=== PATIENT | male | born 1990 | race Caucasian/White ===

== ENCOUNTER 2017-03-28 12:06 | Inpatient (IN) | payer OTHER ==
[2017-03-28 12:25] VITALS: BMI 23.6
--- NOTE | 2017-03-28 13:44 | HP ---
COWS - Scale Resting Pulse: 0= [place] 80 or Below Sweatin=Flushed/Facial Moisture Restless Observation: 1= Difficult to Sit Still Pupil Size: 1= Pupils >than Normal Bone or Joint Aches: 2= Severe Diffuse Aches Runny Nose/ Eye Tearin= Runny Nose/Eyes GI Upset > 30mins: 2= Nausea/Diarrhea Tremor Observation: 2= Slight Tremor Visible Yawning Observation: 1= 1-2x During Session Anxiety or Irritability: 2=Irritable/Anxious Goose Flesh Skin: 3=Piloerection COWS Score: 18 CIWA Score - CIWA Score Nausea/Vomitin-No Nausea/No Vomiting Muscle Tremors: 3 Anxiety: 3 Agitation: 2 Paroxysmal Sweats: 3 Orientation: 0-Oriented Tacttile Disturbances: 0-None Auditory Disturbances: 0-None Visual Disturbances: 0-None Headache: 4-Moderately Severe CIWA-Ar Total Score: 15 Admission ROS BHS - HPI Chief Complaint: "I want to get clean and I don't want to go through withdrawal phases again." Pt. is here to detox from Opioids (Percocet, Oxycontin) and Xanax. Allergies/Adverse Reactions: Allergies Allergy/AdvReac Type Severity Reaction Status Date / Time No Known Allergies Allergy Verified 03/28/17 12:44 History of Present Illness: Pt. is a 26 YO male here to detox from Opioids (Percocet, Oxycontin) and Xanax. Pt. has had [address] previous Det[address] admission [address] [facility] in 07/2016. Exam Limitations: No Limitations - Ebola screening Have you traveled outside of the country in the last 21 days: No Have you had contact with anyone from an Ebola affected area: No Have you been sick,other than usual withdrawal symptoms: No Do you have a fever: No - Review of Systems Constitutional: Chills, Diaphoresis, Fever, Malaise, Night Sweats, Changes in sleep EENT: reports: Tearing, Nose Congestion, Sinus Pressure Respiratory: reports: No Symptoms reported Cardiac: reports: No Symptoms Reported GI: reports: Diarrhea, Nausea, Indigestion, Abdominal cramping : reports: No Symptoms Reported Musculoskeletal: reports: Back Pain, Muscle Pain Integumentary: reports: No Symptoms Reported Neuro: reports: Headache, Seizure (Drug-Related (X1, 01/2017). Pt. was evaluated in ER.), Tremors Endocrine: reports: No Symptoms Reported Hematology: reports: No Symptoms Reported Psychiatric: reports: Judgement Intact, Mood/Affect Appropiate, Orientated x3, Anxious Other Systems: Reviewed and Negative Patient History - Patient Medical History Hx Anemia: No Hx Asthma: No Hx Chronic Obstructive Pulmonary Disease (COPD): No Hx Cancer: No Hx Cardiac Disorders: No Hx Congestive Heart Failure: No Hx Hypertension: No Hx Hypercholesterolemia: No Hx Pacemaker: No HX Cerebrovascular Accident: No Hx Seizures: Yes (01/2017 drug related (only 1 time).) Hx Dementia: No Hx Diabetes: No Hx Gastrointestinal Disorders: No Hx Liver Disease: No Hx Genitourinary Disorders: No Hx Sexually Transmitted Disorders: No Hx Renal Disease (ESRD): No Hx Thyroid Disease: No Hx Human Immunodeficiency Virus (HIV): No (Last Tested: 2014.) Hx Hepatitis C: No (NEGATIVE HISTORY.) Hx Depression: No Hx Suicide Attempt: No (PATIENT DENIES CURRENT SI / HI.) Hx Bipolar Disorder: No Hx Schizophrenia: No - Patient Surgical History Past Surgical History: No Hx Neurologic Surgery: No Hx Cataract Extraction: No Hx Cardiac Surgery: No Hx Lung Surgery: No Hx Breast Surgery: No Hx Breast Biopsy: No Hx Abdominal Surgery: No Hx Appendectomy: No Hx Cholecystectomy: No Hx Genitourinary Surgery: No Hx Section: No Hx Orthopedic Surgery: No Anesthesia Reaction: No - PPD History Previous Implant?: Yes Documented Results: Negative w/proof Implanted On Prior [facility] Admission?: Yes Date: 07/08/16 PPD to be Administered?: No - Reproductive History Patient is a Female of Child Bearing Age (11 -55 yrs old): No (PATIENT IS MALE.) - Smoking Cessation Smoking history: Current every day smoker Have you smoked in the past 12 months: Yes Aproximately how many cigarettes per day: 12 Cigars Per Day: 0 Hx Chewing Tobacco Use: No Initiated information on smoking cessation: Yes 'Breaking Loose' booklet given: 03/28/17 (GIVEN ON UNIT.) - Substance & Tx. History Hx Alcohol Use: No Hx Substance Use: Yes Substance Use Type: Cocaine, Opiates, Tranquilizers Hx Substance Use Treatment: Yes (1 Previous detox admission at [facility].) - Substances Abused Oxycontin Route: Oral Frequency: Daily Amount used: 8 pills Age of first use: 22 Date of Last Use: 03/27/17 Cocaine Route: Inhalation Frequency: 1-3 times last 30 days Amount used: 2 gms Age of first use: 21 Alprazolam (Xanax) Route: Oral Frequency: Daily Amount used: 1 bar Age of first use: 25 Date of Last Use: 03/26/17 percocet Route: Oral Frequency: Daily Amount used: 80mg Age of first use: 22 Date of Last Use: 03/27/17 Family Disease History - Family Disease History Family Disease History: Diabetes: Grandparent Admission Physical Exam [facility] - Vital Signs Vital Signs: Vital Signs - 24 hr 03/28/17 12:23 Temperature 97.9 F Pulse Rate 80 Respiratory 16 Rate Blood Pressure 123/68 - Physical General Appearance: Yes: No Apparent Distress, Nourished, Appropriately Dressed , Tremorous, Anxious HEENTM: Yes: Hearing grossly Normal, Normocephalic, Normal Voice, KRISTY, Pharynx Normal Respiratory: Yes: Chest Non-Tender, Lungs Clear, No Respiratory Distress Neck: Yes: No masses,lesions,Nodules, Supple, Trachea in good position Breast: Yes: Breast Exam Deferred Cardiology: Yes: Regular Rhythm, Regular Rate, S1, S2 Abdominal: Yes: Normal Bowel Sounds, Non Tender, Flat, Soft Genitourinary: Yes: Within Normal Limits Back: Yes: Decreased Range of Motion Musculoskeletal: Yes: Gait Steady, Back pain Extremities: Yes: Normal Range of Motion, Non-Tender, Tremors Neurological: Yes: Fully Oriented, Alert, Normal Mood/Affect, Normal Response Integumentary: Yes: Normal Color, Dry, Warm Lymphatic: Yes: Within Normal Limits - Diagnostic (1) Nicotine dependence Current Visit: Yes Status: Chronic Qualifiers: Nicotine product type: cigarettes Substance use status: uncomplicated Qualified Code(s): F17.210 - Nicotine dependence, cigarettes, uncomplicated (2) Opioid dependence with withdrawal Current Visit: Yes Status: Acute (3) Cocaine dependence, uncomplicated Current Visit: Yes Status: Acute (4) Sedative, hypnotic or anxiolytic dependence with withdrawal, uncomplicated Current Visit: Yes Status: Acute (5) History of seizure Current Visit: Yes Status: Chronic Comment: X 1 (01/2017), Related Substance-Withdrawal. Cleared for Admission S - Detox or Rehab [facility] Level of Care: Medically Managed Detox Regimen/Protocol: Methadone/Valium BHS Breath Alcohol Content Breath Alcohol Content: 0 Urine Drug Screen - Results Drug Screen Negative: No Urine Drug Screen Results: DALE-Cocaine, BZO-Benzodiazepines, TCA-Tricyclic Antidepress, OXY-Oxycodone
[2017-03-28] MEDS ORDERED: MAG HYDROX/AL HYDROX/SIMETH 30 ML UNIT-DOSE CUP PO PRN (14:06)
[2017-03-28] MEDS ORDERED: MAGNESIUM CITRATE 300 ML BOTTLE PO PRN (14:06)
[2017-03-28] MEDS ORDERED: guaiFENesin/D-METHORPHAN HB 10 ML UNIT-DOSE CUPS PO PRN (14:06)
[2017-03-28] MEDS ORDERED: diazePAM 5 MG TABLET PO ONE (14:06)
[2017-03-28] MEDS ORDERED: ACETAMINOPHEN 325 MG TABLET (FP) PO PRN (14:06)
[2017-03-28] MEDS ORDERED: LOPERAMIDE HCL 2 MG CAPSULE PO PRN (14:06)
[2017-03-28] MEDS ORDERED: METHADONE HCL 10 MG TABLET (FOR DETOX USE ONLY) PO ONE ×2 (14:06→23:00)
[2017-03-28] MEDS ORDERED: P-EPHED 60MG/TRIPROLIDI 2.5MG TABLET PO PRN (14:06)
[2017-03-28] MEDS ORDERED: MAGNESIUM HYDROX 2400MG/30ML ORAL SUSPENSION 30 ML CUP PO PRN (14:06)
[2017-03-28] MEDS ORDERED: NICOTINE POLACRILEX 2 MG GUM BUC PRN (14:06)
[2017-03-28] MEDS ORDERED: MENTHOL/PHENOL 1 EACH UD MM PRN (14:06)
[2017-03-28] MEDS: diazePAM 5 MG TABLET PO SCH ×2 (15:02→22:18)
[2017-03-28] MEDS: NICOTINE 21 MG/24 HOURS TOPICAL PATCH TD SCH (15:02)
[2017-03-28 18:19] LABS: URINE APPEARANCE CLEAR; URINE BILIRUBIN NEGATIVE (NEGATIVE); URINE BLOOD NEGATIVE (NEGATIVE); URINE COLOR STRAW; URINE GLUCOSE (UA) NEGATIVE (NEGATIVE); URINE KETONE NEGATIVE (NEGATIVE); URINE LEUK ESTERASE NEGATIVE (NEGATIVE); URINE NITRITE NEGATIVE (NEGATIVE); URINE PROTEIN NEGATIVE (NEGATIVE); URINE UROBILINOGEN NEGATIVE E.U./dl (0.2-1.0)
[2017-03-28] MEDS: diazePAM 5 MG TABLET PO PRN (18:54)
[2017-03-28] MEDS: THIAMINE HCL 100 MG TABLET (FP) PO SCH (22:18)
[2017-03-28] MEDS: diphenhydrAMINE HCL 50 MG CAPSULE PO PRN (22:18)
[2017-03-29] MEDS: diazePAM 5 MG TABLET PO PRN ×3 (01:55→17:02)
[2017-03-29] MEDS: diazePAM 5 MG TABLET PO SCH ×3 (05:57→22:17)
[2017-03-29] MEDS ORDERED: METHADONE HCL 10 MG TABLET (FOR DETOX USE ONLY) PO SCH (10:00)
[2017-03-29] MEDS: PRENATAL VITAMINS W/ FOLIC ACID TABLET (FP) PO SCH (10:33)
[2017-03-29] MEDS: NICOTINE 21 MG/24 HOURS TOPICAL PATCH TD SCH (10:34)
--- NOTE | 2017-03-29 11:05 | EKG ---
Test Reason : Blood Pressure : / mmHG Vent. Rate : 078 BPM Atrial Rate : 078 BPM P-R Int : 152 ms QRS Dur : 082 ms QT Int : 364 ms P-R-T Axes : 064 -23 041 degrees QTc Int : 414 ms NORMAL SINUS RHYTHM NORMAL ECG NO PREVIOUS ECGS AVAILABLE Confirmed by GUEVARA ARAUJO MD ([id number]) on 03/29/2017 11:05:23 AM Referred By: Confirmed By:GUEVARA ARAUJO MD
[2017-03-29] MEDS ORDERED: LIDOCAINE 5% TOPICAL PATCH TP ONE (11:34)
[2017-03-29] MEDS: CYCLOBENZAPRINE HCL 10 MG TABLET (FP) PO PRN ×2 (12:41→22:17)
[2017-03-29 14:17] LABS: MCH 27.7 pg (25.7-33.7); MCHC 32.5 g/dl (32.0-35.9); MEAN CELL VOLUME 85.3 fl (80-96); MEAN PLT VOLUME 10.2 fl (7.5-11.1); PLATELET COUNT 190 K/MM3 (134-434); RDW 12.8 % (11.9-15.9); WHITE BLOOD COUNT 7.4 K/mm3 (4.0-10.0)
[2017-03-29 14:26] LABS: ALK PHOS 81 U/L (45-117); ANION GAP 10 (8-16); BILIRUBIN,TOTAL 0.5 mg/dL (0.2-1.0); CALCIUM 9.4 mg/dL (8.5-10.1); CO2 27 mmol/L (21-32); COCKROFT - GAULT 92.7; CREATININE 1.1 mg/dL (0.7-1.3); GLUCOSE,RANDOM 91 mg/dL (74-106); SGOT/AST 17 U/L (15-37); SGPT/ALT 25 U/L (12-78)
--- NOTE | 2017-03-29 15:07 | PN ---
[facility] CIWA - CIWA Score Nausea/Vomitin-No Nausea/No Vomiting Muscle Tremors: 2 Anxiety: 4-Mod. Anxious/Guarded Agitation: 3 Paroxysmal Sweats: 4-Forehead w/Sweat Beads Orientation: 0-Oriented Tacttile Disturbances: 3-Moderate Itch/Numb/Burn Auditory Disturbances: 0-None Visual Disturbances: 2-Mild Sensitivity Headache: 0-None Present CIWA-Ar Total Score: 18 BHS COWS - Scale Resting Pulse: 0= [place] 80 or Below Sweatin=Flushed/Facial Moisture Restless Observation: 1= Difficult to Sit Still Pupil Size: 0= Normal to Room Light Bone or Joint Aches: 2= Severe Diffuse Aches Runny Nose/ Eye Tearin= Runny Nose/Eyes GI Upset > 30mins: 1= Stomach Cramp Tremor Observation of Outstretched Hands: 2= Slight Tremor Visible Yawning Observation: 1= 1-2x During Session Anxiety or Irritability: 2=Irritable/Anxious Goose Flesh Skin: 3=Piloerection COWS Score: 16 S Progress Note (SOAP) Subjective: Interrupted Sleep, Lower Back Ache, Sweating. Objective: PT. A & O X 3, OBSERVED AMBULATING ON UNIT. 03/29/17 15:05 Vital Signs Temperature 97.5 F L 03/29/17 10:10 Pulse Rate 74 03/29/17 10:10 Respiratory Rate 18 03/29/17 10:10 Blood Pressure 129/77 03/29/17 10:10 O2 Sat by Pulse Oximetry (%) Laboratory Tests 03/28/17 03/29/17 03/29/17 18:01 07:12 07:12 WBC 7.4 RBC 4.55 Hgb 12.6 D Hct 38.8 MCV 85.3 MCHC 32.5 RDW 12.8 Plt Count 190 MPV 10.2 Sodium 138 Potassium 4.3 Chloride 101 Carbon Dioxide 27 Anion Gap 10 BUN 22 H Creatinine 1.1 D Creat Clearance w eGFR > 60 Random Glucose 91 Calcium 9.4 Total Bilirubin 0.5 D AST 17 D ALT 25 Alkaline Phosphatase 81 Total Protein 7.0 Albumin 4.0 Urine Color Straw Urine Appearance Clear Urine pH 7.0 D Ur Specific [place] 1.020 Urine Protein Negative Urine Glucose (UA) Negative Urine Ketones Negative Urine Blood Negative Urine Nitrite Negative Urine Bilirubin Negative Urine Urobilinogen Negative Ur Leukocyte Esterase Negative RPR Titer 03/29/17 07:12 WBC RBC Hgb Hct MCV MCHC RDW Plt Count MPV Sodium Potassium Chloride Carbon Dioxide Anion Gap BUN Creatinine Creat Clearance w eGFR Random Glucose Calcium Total Bilirubin AST ALT Alkaline Phosphatase Total Protein Albumin Urine Color Urine Appearance Urine pH Ur Specific [place] Urine Protein Urine Glucose (UA) Urine Ketones Urine Blood Urine Nitrite Urine Bilirubin Urine Urobilinogen Ur Leukocyte Esterase RPR Titer Nonreactive LABS NOTED. 03/29/17 15:08 Assessment: 03/29/17 15:06 WITHDRAWAL SYMPTOMS. Plan: CONTINUE DETOX. PRN FLEXERIL FOR BODY ACHES / MUSCLE SPASMS. INCREASE PO FLUID INTAKE.
[2017-03-29] MEDS ORDERED: LIDOCAINE PATCH REMOVAL MC SCH (22:00)
[2017-03-29] MEDS: THIAMINE HCL 100 MG TABLET (FP) PO SCH (22:17)
[2017-03-29] MEDS: diphenhydrAMINE HCL 50 MG CAPSULE PO PRN (22:18)
[2017-03-30] MEDS: diazePAM 5 MG TABLET PO PRN ×4 (01:10→19:40)
[2017-03-30] MEDS: CYCLOBENZAPRINE HCL 10 MG TABLET (FP) PO PRN ×3 (05:47→22:33)
[2017-03-30] MEDS: METHADONE HCL 5 MG TABLET (FOR DETOX USE ONLY) PO SCH (10:19)
[2017-03-30] MEDS: NICOTINE 21 MG/24 HOURS TOPICAL PATCH TD SCH (10:19)
[2017-03-30] MEDS: diazePAM 5 MG TABLET PO SCH ×2 (10:19→22:32)
[2017-03-30] MEDS: PRENATAL VITAMINS W/ FOLIC ACID TABLET (FP) PO SCH (10:20)
[2017-03-30] MEDS: hydrOXYzine PAMOATE 50 MG CAPSULE (FP) PO PRN (10:20)
--- NOTE | 2017-03-30 11:16 | PN ---
S CIWA - CIWA Score Nausea/Vomitin Muscle Tremors: 2 Anxiety: 3 Agitation: 2 Paroxysmal Sweats: 3 Orientation: 0-Oriented Tacttile Disturbances: 2-Mild Itch/Numbness/Burn Auditory Disturbances: 0-None Visual Disturbances: 0-None Headache: 0-None Present CIWA-Ar Total Score: 14 S COWS - Scale Resting Pulse: 1= [place] 81-100 Sweatin=Flushed/Facial Moisture Restless Observation: 1= Difficult to Sit Still Pupil Size: 1= Pupils >than Normal Bone or Joint Aches: 2= Severe Diffuse Aches Runny Nose/ Eye Tearin= Nasal Congestion GI Upset > 30mins: 1= Stomach Cramp Tremor Observation of Outstretched Hands: 1= Tremor [place], Not Seen Yawning Observation: 0= None Anxiety or Irritability: 2=Irritable/Anxious Goose Flesh Skin: 0=Smooth Skin COWS Score: 12 BHS Progress Note (SOAP) Subjective: INTERRUPTED SLEEP, SWEATS, CHILLS, ACHES/PAINS , CONSTIPATION Objective: 03/30/17 11:13 Vital Signs Temperature 96.4 F L 03/30/17 09:38 Pulse Rate 79 03/30/17 09:38 Respiratory Rate 16 03/30/17 09:38 Blood Pressure 125/75 03/30/17 09:38 O2 Sat by Pulse Oximetry (%) Laboratory Tests 03/28/17 03/29/17 03/29/17 18:01 07:12 07:12 WBC 7.4 RBC 4.55 Hgb 12.6 D Hct 38.8 MCV 85.3 MCHC 32.5 RDW 12.8 Plt Count 190 MPV 10.2 Sodium 138 Potassium 4.3 Chloride 101 Carbon Dioxide 27 Anion Gap 10 BUN 22 H Creatinine 1.1 D Creat Clearance w eGFR > 60 Random Glucose 91 Calcium 9.4 Total Bilirubin 0.5 D AST 17 D ALT 25 Alkaline Phosphatase 81 Total Protein 7.0 Albumin 4.0 Urine Color Straw Urine Appearance Clear Urine pH 7.0 D Ur Specific [place] 1.020 Urine Protein Negative Urine Glucose (UA) Negative Urine Ketones Negative Urine Blood Negative Urine Nitrite Negative Urine Bilirubin Negative Urine Urobilinogen Negative Ur Leukocyte Esterase Negative RPR Titer 03/29/17 07:12 WBC RBC Hgb Hct MCV MCHC RDW Plt Count MPV Sodium Potassium Chloride Carbon Dioxide Anion Gap BUN Creatinine Creat Clearance w eGFR Random Glucose Calcium Total Bilirubin AST ALT Alkaline Phosphatase Total Protein Albumin Urine Color Urine Appearance Urine pH Ur Specific [place] Urine Protein Urine Glucose (UA) Urine Ketones Urine Blood Urine Nitrite Urine Bilirubin Urine Urobilinogen Ur Leukocyte Esterase RPR Titer Nonreactive PT AOX3 , ANXIOUS AMBULATING Assessment: 03/30/17 11:14 WITHDRAWAL SX'S LBP CONSTIPATION 03/30/17 11:15 Plan: CONT DETOX INCREASE FLUIDS MOTRIN PRN CONT LIDOCAINE PATCH CONT FLEXERIL TID/PRN MOM
[2017-03-30] MEDS ORDERED: LIDOCAINE 5% TOPICAL PATCH TP ONE (14:40)
[2017-03-30] MEDS ORDERED: LIDOCAINE PATCH REMOVAL MC SCH (22:00)
[2017-03-30] MEDS: THIAMINE HCL 100 MG TABLET (FP) PO SCH (22:35)
[2017-03-30] MEDS: diphenhydrAMINE HCL 50 MG CAPSULE PO PRN (22:36)
[2017-03-30] MEDS: LIDOCAINE PATCH REMOVAL MC SCH (23:08)
[2017-03-31] MEDS: diphenhydrAMINE HCL 50 MG CAPSULE PO PRN ×2 (00:57→22:14)
[2017-03-31] MEDS: diazePAM 5 MG TABLET PO PRN ×2 (06:21→13:59)
[2017-03-31] MEDS: CYCLOBENZAPRINE HCL 10 MG TABLET (FP) PO PRN ×3 (06:24→22:17)
[2017-03-31] MEDS: METHADONE HCL 5 MG TABLET (FOR DETOX USE ONLY) PO SCH (10:39)
[2017-03-31] MEDS: PRENATAL VITAMINS W/ FOLIC ACID TABLET (FP) PO SCH (10:39)
[2017-03-31] MEDS: NICOTINE 21 MG/24 HOURS TOPICAL PATCH TD SCH (10:39)
[2017-03-31] MEDS: diazePAM 5 MG TABLET PO SCH ×2 (10:39→22:16)
[2017-03-31] MEDS: hydrOXYzine PAMOATE 50 MG CAPSULE (FP) PO PRN (10:40)
--- NOTE | 2017-03-31 10:58 | PN ---
BHS Progress Note (SOAP) Subjective: sore throat chills sweats interrupted sleep agitation Objective: 03/31/17 10:57 Vital Signs Temperature 97.0 F L 03/31/17 10:00 Pulse Rate 109 H 03/31/17 10:00 Respiratory Rate 20 03/31/17 10:00 Blood Pressure 134/74 03/31/17 10:00 O2 Sat by Pulse Oximetry (%) awake/alert ambulating no acute distress Assessment: 03/31/17 10:57 withdrawal sx Plan: continue detox increase fluids amoxicillin bid mycelx troches
[2017-03-31] MEDS: LIDOCAINE 5% TOPICAL PATCH TP SCH (11:01)
[2017-03-31] MEDS ORDERED: AMOX TR/POT CLAV 500MG/125MG TABLETS (FP) PO ONE (12:51)
[2017-03-31] MEDS: CLOTRIMAZOLE 10 MG TROCHE (FP) PO SCH ×3 (13:56→22:15)
[2017-03-31] MEDS: AMOX TR/POT CLAV 500MG/125MG TABLETS (FP) PO SCH (17:12)
[2017-03-31] MEDS: IBUPROFEN 400 MG TABLET (FP) PO PRN (20:36)
[2017-03-31] MEDS: THIAMINE HCL 100 MG TABLET (FP) PO SCH (22:15)
[2017-03-31] MEDS: LIDOCAINE PATCH REMOVAL MC SCH (22:15)
[2017-04-01] MEDS: hydrOXYzine PAMOATE 50 MG CAPSULE (FP) PO PRN ×3 (06:21→18:10)
[2017-04-01] MEDS: AMOX TR/POT CLAV 500MG/125MG TABLETS (FP) PO SCH ×2 (07:09→17:24)
[2017-04-01] MEDS: CLOTRIMAZOLE 10 MG TROCHE (FP) PO SCH ×5 (07:09→22:07)
[2017-04-01] MEDS ORDERED: diazePAM 5 MG TABLET PO SCH (10:00)
[2017-04-01] MEDS ORDERED: METHADONE HCL 10 MG TABLET (FOR DETOX USE ONLY) PO SCH (10:00)
[2017-04-01] MEDS: PRENATAL VITAMINS W/ FOLIC ACID TABLET (FP) PO SCH (10:17)
[2017-04-01] MEDS: NICOTINE 21 MG/24 HOURS TOPICAL PATCH TD SCH (10:18)
[2017-04-01] MEDS: LIDOCAINE 5% TOPICAL PATCH TP SCH (10:20)
[2017-04-01] MEDS: cloNIDine HCL 0.1 MG TABLET PO SCH ×2 (11:21→22:07)
--- NOTE | 2017-04-01 12:03 | PN ---
BHS Progress Note (SOAP) Subjective: ALERT,IRRITABLE,ANXIOUS,INTERRUPTED SLEEP,PAIN IN THE BODY Objective: 04/01/17 12:02 Vital Signs Temperature 98.0 F 04/01/17 09:50 Pulse Rate 107 H 04/01/17 09:50 Respiratory Rate 20 04/01/17 09:50 Blood Pressure 126/78 04/01/17 09:50 O2 Sat by Pulse Oximetry (%) Assessment: 04/01/17 12:02 WITHDRAWAL SYMPTOM Plan: CONTINUE DETOX
[2017-04-01] MEDS: IBUPROFEN 400 MG TABLET (FP) PO PRN (12:38)
[2017-04-01] MEDS: CYCLOBENZAPRINE HCL 10 MG TABLET (FP) PO PRN ×3 (12:38→22:07)
[2017-04-01] MEDS: diphenhydrAMINE HCL 50 MG CAPSULE PO PRN (22:07)
[2017-04-01] MEDS: LIDOCAINE PATCH REMOVAL MC SCH (22:38)
[2017-04-01] MEDS: THIAMINE HCL 100 MG TABLET (FP) PO SCH (22:39)
[2017-04-02] MEDS ORDERED: METHADONE HCL 5 MG TABLET (FOR DETOX USE ONLY) PO SCH (06:00)
[2017-04-02] MEDS: CLOTRIMAZOLE 10 MG TROCHE (FP) PO SCH (06:09)
[2017-04-02] MEDS: CYCLOBENZAPRINE HCL 10 MG TABLET (FP) PO PRN (06:11)
[2017-04-02 06:43] VITALS: BP 121/74; PULSE 89; TEMP 98.2
[2017-04-02] MEDS: AMOX TR/POT CLAV 500MG/125MG TABLETS (FP) PO SCH (08:03)
--- NOTE | 2017-04-02 08:15 | PN ---
S Progress Note (SOAP) Subjective: ALERT,NO COMPLAINT Objective: 04/02/17 08:14 Vital Signs Temperature 98.2 F 04/02/17 06:42 Pulse Rate 89 04/02/17 06:42 Respiratory Rate 18 04/02/17 06:42 Blood Pressure 121/74 04/02/17 06:42 O2 Sat by Pulse Oximetry (%) Assessment: 04/02/17 08:14 DETOX COMPLETED,NO WITHDRAWAL SYMPTOM Plan: DISCHARGE TODAY,FOLLOW UP WITH AFTER CARE PROGRAM ARRANGEMENT
--- NOTE | 2017-04-02 08:19 | DS ---
[facility] Detox Discharge Summary Admission Date: 03/28/17 Discharge Date: 04/02/17 - History Present History: Cocaine Dependence, Opioid Dependence, Sedative Dependence Additional Comments: FOLLOW UP WITH AFTER CARE PROGRAM ARRANGEMENT AND PMD FOR MEDICAL PROBLEM Pertinent Past History: SEIZURE - Physical Exam Results Vital Signs: Vital Signs Temperature 98.2 F 04/02/17 06:42 Pulse Rate 89 04/02/17 06:42 Respiratory Rate 18 04/02/17 06:42 Blood Pressure 121/74 04/02/17 06:42 O2 Sat by Pulse Oximetry (%) Pertinent Admission Physical Exam Findings: WITHDRAWAL SYMPTOM - Treatment Hospital Course: Detox Protocol Followed, Detoxed Safely, Responded well, Discharged Condition Good, Rehab Referral Accepted Patient has Accepted a Rehab Referral to: [facility] - Medication Discharge Medications: Ambulatory Orders Amox-Tr/K Cl [Augmentin 500-125mg Tablet -] 1 tab PO BID@0800,1730 #10 tablet - Diagnosis (1) URI (upper respiratory infection) Status: Acute - AMA Did Patient Leave Against Medical Advice: No
[2017-04-02] MEDS: hydrOXYzine PAMOATE 50 MG CAPSULE (FP) PO PRN (09:32)
[2017-04-02] MEDS: PRENATAL VITAMINS W/ FOLIC ACID TABLET (FP) PO SCH (09:32)
== END 2017-04-02 09:37 | disposition home or self-care (01) | DRG 773 ==
LOC: YASAS 12:06 → Y6N 14:08
PROVIDERS: ADMIT Internal Medicine; ATTEND Internal Medicine
PROC: HZ2ZZZZ Detoxification Services for Substance Abuse Treatment (ICD-10-PCS; principal; 2017-04-02)
DX: F11.23 Opioid dependence with withdrawal (principal); F13.230 Sedative, hypnotic or anxiolytic dependence with withdrawal, uncomplicated; F14.20 Cocaine dependence, uncomplicated; F17.210 Nicotine dependence, cigarettes, uncomplicated; G40.509 Epileptic seizures related to external causes, not intractable, without status epilepticus
CPT/HCPCS: 36415; 80053; 81003; 85027; 86593; 93005; 93010; J0735